=== PATIENT | female | born 1995 | race African-American/Black ===

== ENCOUNTER 2019-06-29 11:58 | Emergency (ER) | payer SELFPAY ==
[2019-06-29 12:13] VITALS: BP 132/68; PULSE 85; RESP 16; TEMP 36.5; O2SAT 99
--- NOTE | 2019-06-29 12:38 | ED.GENADULT ---
HPI - General Adult General Chief complaint: Abdominal Pain Stated complaint: Constipation/Abd pain/Bleeding Time Seen by Provider: 06/29/19 12:32 Source: patient and RN notes reviewed Mode of arrival: ambulatory Limitations: no limitations History of Present Illness HPI narrative: Patient presents today complaining of lower abdominal pain and constipation x3 days with bright red blood per rectum this morning x1. She had not had a bowel movement for 2 days. She did not take any giml-cjo-sulzusj medications at home. Reports her bowel movement this morning was soft and not large. She denies rectal pain with bowel movement. Denies any chronic issues with constipation. She has not had a period since April. Denies any current vaginal bleeding, hematuria, dysuria. MD complaint: Abdominal pain, bright red blood per rectum Related Data Home Medications Medication Instructions Recorded Confirmed No Home Medications 06/29/19 06/29/19 Allergies Allergy/AdvReac Type Severity Reaction Status Date / Time No Known Allergies Allergy Unknown Unverified 02/02/19 15:33 Review of Systems Review of Systems: Narrative: CONSTITUTIONAL: Denies body aches, fever, chills, or sweats. EYES: Denies visual changes, redness, or discharge. ENT: Denies rhinorrhea, congestion, sore throat, or otalgia. CARDIOVASCULAR: Denies chest pain, palpitations, or edema. RESPIRATORY: Denies cough or dyspnea. GASTROINTESTINAL: Denies nausea, vomiting, or diarrhea.+ Abdominal pain, bright red blood per rectum GENITOURINARY: Denies dysuria or hematuria. SKIN: Denies rash, itching, or wounds. MUSCULOSKELETAL: Denies back pain, joint pain, or myalgia. NEUROLOGIC: Denies headache, numbness, tingling, or weakness. PSYCH: Denies depression or anxiety. [facility] Past Medical History Medical History (Updated 06/29/19 @ 13:04 by Vy Berumen, [facility], ) HTN (hypertension) Social History Social History Gender identity (if verbalized by the patient): Female Comments At time of signature, I have reviewed and agree with nursing past medical, surgical, social and family history unless otherwise noted. Please see nursing chart for further information. There is no relevant family history pertinent to the presenting complaint Exam Narrative: Exam Narrative: GENERAL: Well-appearing, well-nourished, and in no acute distress. HEAD: Normocephalic, atraumatic. EYES: EOMI. No redness or drainage. Conjunctivae normal. ENT: Mucous membranes pink and moist. NECK: Normal AROM. CHEST: No respiratory distress. Clear to auscultation. HEART: Regular rate and rhythm. No murmur appreciated. Normal peripheral pulses. ABDOMEN: Soft, nondistended, normal active bowel sounds. Tenderness to the bilateral lower abdomen, Left greater than right, and suprapubic area. Rectal exam chaperoned by RN: No visualized anal fissures or external hemorrhoids. No internal hemorrhoids noted. Small amount of soft yellow stool on the glove. No bright red blood on glove. MUSCULOSKELETAL: No bony tenderness. EXTREMITIES: Normal range of motion. No edema. SKIN: Warm, dry, no rash. NEURO: No focal deficits. Alert and oriented x3. Gait steady. PSYCH: Normal affect. No signs of depression or anxiety. Course Vital Signs Vital signs: Vital Signs Temperature 97.7 F 06/29/19 12:13 Pulse Rate 85 06/29/19 12:13 Respiratory Rate 16 06/29/19 12:13 Blood Pressure 132/68 06/29/19 12:13 Pulse Oximetry 99 06/29/19 12:13 Temperature 97.7 F 06/29/19 12:13 Pulse Rate 85 06/29/19 12:13 Respiratory Rate 16 06/29/19 12:13 Blood Pressure 132/68 06/29/19 12:13 Pulse Oximetry 99 06/29/19 12:13 Reviewed. Pt has been instructed to follow up with her PCP regarding her elevated blood pressure today. Transfer Transfered to: [facility] Transfer rationale: Abdominal pain, Hemoccult positive Deni Accepting physician: Deni Medical Decision Making Differential Diag
--- NOTE | 2019-06-29 12:53 | PC.NURSE ---
Hemocult positive for blood. 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
== END 2019-06-29 13:02 | disposition short-term general hospital (02) ==
PROVIDERS: Emergency Provider Nurse Practitioner
DX: R10.31 Right lower quadrant pain (principal); R10.32 Left lower quadrant pain; R19.5 Other fecal abnormalities; I10 Essential (primary) hypertension
CPT/HCPCS: 81025; 99213; G0463

== ENCOUNTER 2019-06-29 13:21 | Emergency (ER) | payer SELFPAY ==
[2019-06-29 13:27] VITALS: BP 136/73; PULSE 70; RESP 18; TEMP 36.4; O2SAT 100
[2019-06-29 13:50] VITALS: BP 140/77; PULSE 74; RESP 15; O2SAT 100
[2019-06-29 14:01] LABS: Basophils Percent Auto 0.5 % (0.2-1.2); Eosinophils Absolute Auto 0.1 K/mm3 (0-0.3); Eosinophils Percent Auto 1.1 % (0-4.4); Hematocrit 41.7 % (37.0-47.0); Hemoglobin 13.1 g/dL (12.0-15.0); Immature Granulocyte Absolute 0.01 K/mm3 (0.00-0.031); Immature Granulocyte Percent A 0.2 % (0-0.5); Lymphocytes Absolute Auto 2.24 K/mm3 (0.9-3.2); Lymphocytes Percent Auto 34.9 % (18.3-44.2); Mean Corpuscular HGB Conc 31.4 g/dl (32-36); Mean Corpuscular Hemoglobin 26.7 pg (26-34); Mean Corpuscular Volume 85.1 fl (80-100); Mean Platelet Volume 9.5 fl (7.4-10.4); Monocytes Absolute Auto 0.5 K/mm3 (0.1-0.6); Neutrophils Absolute Auto 3.6 K/mm3 (1.3-6.7); Neutrophils Percent Auto 56.3 % (45.5-73.1); Platelet Count Result 360 k/mm3 (150-375); Red Cell Distribution Width 12.9 % (11.5-14.5); White Blood Count 6.4 K/mm3 (4.5-10.0)
[2019-06-29 14:06] LABS: Add Urine Microscopic? YES; Appearance Urine Cloudy (Clear); Bacteria Urine Trace /hpf; Bilirubin Urine Negative (Negative); Blood Urine 2+ (Negative); Color Urine Yellow (Yellow); Glucose Urine UA Negative (Negative); Ketones Urine Negative (Negative); Leukocyte Esterase Ur Trace LEU/UL (Negative); Mucus Urine Rare /lpf; Nitrate Urine Negative (Negative); Protein Urine 1+ mg/dL (Negative); Specific Grav Ur 1.024 (1.001-1.035); Squamous Epithelial Cell Urine Few /hpf (Few)
[2019-06-29] MEDS: SODIUM CHLORIDE 0.9% IV 1,000 ML 999 ML IV CONT (14:09)
[2019-06-29] MEDS: ONDANSETRON INJ 4 MG/2 ML VIAL IV PUSH (14:10)
[2019-06-29] MEDS: FAMOTIDINE 20 MG/2 ML VIAL IV PUSH (14:10)
[2019-06-29 14:13] LABS: Alanine Aminotransferase 44 U/L (4-35); Albumin Level 3.8 g/dL (3.5-5.1); Alkaline Phosphatase 54 U/L (38-126); Aspartate Amino Transferase 34 U/L (14-36); Bilirubin,Total 0.3 mg/dL (0.2-1.3); Blood Urea Nitrogen 13 mg/dL (7-17); Calcium 8.9 mg/dL (8.4-10.2); Carbon Dioxide 25 mmol/L (22-30); Chloride 104 mmol/L (98-107); Estimated CRCL calculation 127 ml/min; Estimated Glomerular Filt Rate > 60; Glucose 89 mg/dL (65-105); Lipase 49 U/L (23-300); Potassium 3.8 mmol/L (3.4-5.0); Sodium 139 mmol/L (137-145)
[2019-06-29 14:36] VITALS: BP 121/70; PULSE 59
[2019-06-29 14:37] VITALS: BP 118/73; PULSE 64
[2019-06-29 14:38] VITALS: BP 129/74; PULSE 77
--- NOTE | 2019-06-29 15:25 | ED.ABDPAIN ---
HPI - Abdominal Pain General Chief Complaint: Abdominal Pain Stated Complaint: abdominal pain, from express care Time Seen by Provider: 06/29/19 13:38 Source: patient Mode of arrival: ambulatory Limitations: no limitations History of Present Illness HPI narrative: Patient is a 24-year-old female who presents from urgent care for evaluation noting that she had some blood in her stool patient notes some mild discomfort in the suprapubic region patient denies similar occurrence in the past or any fever chills nausea vomiting on arrival is resting comfortably in the room in no distress has not taken anything for her symptoms denies radiation of pain Related Data Allergies Allergy/AdvReac Type Severity Reaction Status Date / Time No Known Allergies Allergy Unknown Unverified 02/02/19 15:33 Review of Systems Review of Systems: All systems reviewed & are unremarkable except as noted in HPI and below PMFSH Past Medical History Medical History HTN (hypertension) Social History Social History Gender identity (if verbalized by the patient): Female Exam Narrative: Exam Narrative: GENERAL: Well-appearing, well-nourished, and in no acute distress. HEAD: Normocephalic, atraumatic. EYES: PERRLA and EOMI. ENT: Nares clear, no rhinorrhea or epistaxis. Mucous membranes moist. Oropharynx without tonsillar hypertrophy exudate or other lesions. CHEST: Clear to auscultation. No respiratory distress. No wheezes rales or rhonchi HEART: Regular rate and rhythm. No murmur heard. Normal peripheral pulses. ABDOMEN: Soft, suprapubic tenderness to palpation, nondistended EXTREMITIES: Normal range of motion. No edema. SKIN: Warm, dry, no rash. NEURO: No focal deficits. Alert and oriented x3. Cranial nerves II through XII grossly intact PSYCH: Normal mood and affect. Course Course Emergency Course: Patient in the room in no distress aware of case findings treatment plan and diagnosis agreeing to follow-up as directed Vital Signs Vital signs: Vital Signs Temperature 97.6 F 06/29/19 13:27 Pulse Rate 70 06/29/19 13:27 Respiratory Rate 18 06/29/19 13:27 Blood Pressure 136/73 06/29/19 13:27 Pulse Oximetry 100 06/29/19 13:27 Temperature 97.6 F 06/29/19 13:27 Pulse Rate 77 06/29/19 14:38 Respiratory Rate 15 06/29/19 13:50 Blood Pressure 129/74 06/29/19 14:38 Pulse Oximetry 100 06/29/19 13:50 MDM - Abdominal Pain MDM Narrative Medical decision making narrative: Patient in the room hemodynamically stable in no distress aware of case findings treatment plan and diagnosis agreeing to follow-up as directed or to return if symptoms worsen or concerns patient is afebrile nontoxic-appearing hydrated in the emergency department given medications provided with reasons to return and will be referred to GI for further evaluation Lab Data Result diagrams: 06/29/19 13:53 06/29/19 13:53 Labs: Lab Results 06/29/19 06/29/19 06/29/19 Range/Units 13:53 13:53 13:53 WBC 6.4 (4.5-10.0) K/mm3 RBC 4.90 (4.2-5.4) M/mm3 Hgb 13.1 (12.0-15.0) g/dL Hct 41.7 (37.0-47.0) % MCV 85.1 (80-100) fl MCH 26.7 (26-34) pg MCHC 31.4 L (32-36) g/dl RDW 12.9 (11.5-14.5) % Plt Count 360 (150-375) k/mm3 MPV 9.5 (7.4-10.4) fl Immature Gran % (Auto) 0.2 (0-0.5) % Neut % (Auto) 56.3 (45.5-73.1) % Lymph % (Auto) 34.9 (18.3-44.2) % [place] % (Auto) 7.0 (2.6-8.5) % Eos % (Auto) 1.1 (0-4.4) % Baso % (Auto) 0.5 (0.2-1.2) % Lymph # (Auto) 2.24 (0.9-3.2) K/mm3 [place] # (Auto) 0.5 (0.1-0.6) K/mm3 Eos # (Auto) 0.1 (0-0.3) K/mm3 Baso # (Auto) 0.0 (0.0-0.1) K/mm3 Abs Immat Gran (auto) 0.01 (0.00-0.031) K/mm3 Absolute Neuts (auto) 3.6 (1.3-6.7) K/mm3 Absolute Nucleated RBC 0.0 (0.0-0.012) K/mm3 Nucleated
[2019-06-29 16:05] VITALS: BP 117/72; PULSE 78; RESP 16; O2SAT 100
== END 2019-06-29 16:05 | disposition home or self-care (01) ==
PROVIDERS: Emergency Medicine Emergency Medical Services; Emergency Provider Emergency Medicine
DX: R10.9 Unspecified abdominal pain (principal); I10 Essential (primary) hypertension
CPT/HCPCS: 36415; 80053; 81001; 81025; 83690; 85025; 96361; 96374; 96375; 99284; J0131; J2405; J7030

== ENCOUNTER 2019-11-07 15:10 | Emergency (ER) | payer SELFPAY ==
[2019-11-07 15:23] VITALS: BP 124/71; PULSE 65; RESP 16; TEMP 37.2; O2SAT 99
--- NOTE | 2019-11-07 15:33 | ED.LOWEXIN ---
HPI - Extremity Injury (Lower) General Chief Complaint: Extremity Injury, Lower Stated Complaint: swollen foot Time Seen by Provider: 11/07/19 15:26 Source: patient and RN notes reviewed Mode of arrival: ambulatory Limitations: no limitations History of Present Illness HPI Narrative: Patient presents today complaining of a 5-day history of left foot and ankle swelling, redness, and pain. Symptoms have been worsening since onset. Patient denies any injury, fall, twisting, or wounds. Denies numbness. Reports some tingling in the dorsum of the foot. Currently rates her pain 6/10, which increases with weightbearing. She has tried no interventions prior to arrival. No history of gout, cellulitis, diabetes. MD complaint: other (Left foot pain) Related Data Home Medications Medication Instructions Recorded Confirmed ibuprofen 11/07/19 Allergies Allergy/AdvReac Type Severity Reaction Status Date / Time No Known Allergies Allergy Verified 11/07/19 15:26 Review of Systems Review of Systems: Narrative: CONSTITUTIONAL: Denies body aches, fever, chills, or sweats. EYES: Denies visual changes, redness, or discharge. ENT: Denies rhinorrhea, congestion, sore throat, or otalgia. CARDIOVASCULAR: Denies chest pain, palpitations, or edema. RESPIRATORY: Denies cough or dyspnea. GASTROINTESTINAL: Denies abdominal pain, nausea, vomiting, or diarrhea. GENITOURINARY: Denies dysuria or hematuria. SKIN: Denies rash, itching, or wounds. MUSCULOSKELETAL: Denies back pain, or myalgia.+ Left foot and ankle pain and swelling NEUROLOGIC: Denies headache, numbness, or weakness.+ Tingling to the left foot PSYCH: Denies depression or anxiety. PMFSH Comments At time of signature, I have reviewed and agree with nursing past medical, surgical, social and family history unless otherwise noted. Please see nursing chart for further information. There is no relevant family history pertinent to the presenting complaint Exam Narrative: Exam Narrative: GENERAL: Well-appearing, well-nourished, and in no acute distress. HEAD: Normocephalic, atraumatic. EYES: EOMI. No redness or drainage. Conjunctivae normal. ENT: Mucous membranes pink and moist. NECK: Normal AROM. CHEST: No respiratory distress. EXTREMITIES: Mild edema of about the left ankle and proximal foot with mild erythema. Tenderness to the anterior ankle and proximal dorsal surface of the foot, as well as the medial ankle. Distal sensation intact. Capillary refill normal. Pedal pulse normal. Full AROM of the toes without pain. Active range of motion of the ankle elicits some pain. SKIN: Warm, dry, no rash. Capillary refill normal. Normal skin turgor. NEURO: No focal deficits. Alert and oriented x3. Gait steady. PSYCH: Normal affect. No signs of depression or anxiety. Course Vital Signs Vital signs: Vital Signs Temperature 99.0 F 11/07/19 15:23 Pulse Rate 65 11/07/19 15:23 Respiratory Rate 16 11/07/19 15:23 Blood Pressure 124/71 11/07/19 15:23 Pulse Oximetry 99 11/07/19 15:23 Temperature 99.0 F 11/07/19 15:23 Pulse Rate 65 11/07/19 15:23 Respiratory Rate 16 11/07/19 15:23 Blood Pressure 124/71 11/07/19 15:23 Pulse Oximetry 99 11/07/19 15:23 Reviewed. Pt has been instructed to follow up with her PCP regarding her elevated blood pressure today. MDM - Extremity Injury (Lower) Differential Diagnosis Differential diagnosis: Likely ankle sprain and strain and other (Gout, cellulitis) Critical Care Time Critical Care Time Critical Care Time: No Discharge Plan Discharge Clinical Impression: Acute gout of left ankle Qualifiers: Gout etiology: unspecified cause Qualified Code(s): M10.9 - Gout, unspecified Patient Disposition: Home, Self-Care Condition: Stable Instructions: Low Purine Diet (ED), Gout (ED) Additional Instructions: Your symptoms are likely due to gout. Please take the Medrol and colchicine as directed. Take
== END 2019-11-07 15:45 | disposition home or self-care (01) ==
PROVIDERS: Emergency Provider Nurse Practitioner
DX: M10.9 Gout, unspecified (principal)
CPT/HCPCS: 99203; G0463

== ENCOUNTER 2019-11-07 17:56 | Emergency (ER) | payer SELFPAY ==
--- NOTE | ~2019-11-07 | XR_ITS ---
XR foot LT min 3V DATE: 11/07/2019 18:35 INDICATION: Left ankle pain, radiating into left foot TECHNIQUE: 4 views of the left foot COMPARISON: None FINDINGS: No fracture, dislocation, periosteal reaction or bone destruction. IMPRESSION: Negative Reviewed, dictated and finalized at location A. IMPRESSION: Negative
--- NOTE | ~2019-11-07 | XR_ITS ---
XR ankle LT min 3V DATE: 11/07/2019 18:35 INDICATION: Left ankle pain and swelling; no injury. TECHNIQUE: 4 views COMPARISON: None FINDINGS: There is generalized soft tissue swelling. No fracture or dislocation, periosteal reaction or bone destruction. Ankle mortise is intact. IMPRESSION: Nonspecific soft tissue swelling Reviewed, dictated and finalized at location A.
[2019-11-07 17:58] VITALS: BP 158/88; PULSE 77; RESP 18; TEMP 36.8; O2SAT 98
--- NOTE | 2019-11-07 18:02 | ED.GENADULT ---
HPI - General Adult General Chief complaint: Extremity Injury, Lower Stated complaint: left foot swelling x 5 days Time Seen by Provider: 11/07/19 18:02 Source: patient Mode of arrival: ambulatory Limitations: no limitations History of Present Illness HPI narrative: 24-year-old female patient presents to the [facility] with complaints of left foot swelling for the past 5 days. Patient denies any specific injury that she can remember but states that she has been on her feet a lot working and [place] lives [place] [address] [place] and she has been doing a lot of running around recently. Patient states she last took some Advil yesterday denies seeing anything for pain today. Patient states she did notice some swelling to the left foot and ankle. Denies any numbness or tingling to the toes. Patient states she is able to walk on it with a steady gait but does have increase in pain. Related Data Home Medications Medication Instructions Recorded Confirmed No Home Medications 11/07/19 11/07/19 Allergies Allergy/AdvReac Type Severity Reaction Status Date / Time No Known Allergies Allergy Unknown Verified 11/07/19 18:11 Review of Systems Review of Systems: Narrative: CONSTITUTIONAL: Denies fever, chills, or sweats. EYES: Denies visual changes, redness, or discharge. ENT: Denies rhinorrhea, congestion, sore throat, or otalgia. CARDIOVASCULAR: Denies chest pain, palpitations, or edema. RESPIRATORY: Denies cough or dyspnea. GASTROINTESTINAL: Denies abdominal pain, nausea, vomiting, or diarrhea. GENITOURINARY: Denies dysuria or hematuria. SKIN: Denies rash or itching. MUSCULOSKELETAL: Denies back pain, joint pain, or myalgia. Positive left foot and ankle pain x5 days NEUROLOGIC: Denies headache, numbness, or weakness. PSYCHIATRIC: Denies anxiety or depression. [facility] Past Medical History Medical History HTN (hypertension) Family History Family History Grandparent Hypertension Social History Social History Smoking status: Former smoker Alcohol intake: current Gender identity (if verbalized by the patient): Female Comments At the time of my signature I agree with nursing past medical history, surgical, social, and family history. There is no relevant family history pertinent to the presenting complaint. Exam Narrative: Exam Narrative: GENERAL: Well-appearing, well-nourished, and in no acute distress. HEAD: Normocephalic, atraumatic. EYES: PERRLA and EOMI. ENT: Nares clear, no rhinorrhea or epistaxis. Mucous membranes moist. NECK: Supple. No lymphadenopathy CHEST: Clear to auscultation. No respiratory distress. HEART: Regular rate and rhythm. No murmur heard. Normal peripheral pulses. ABDOMEN: Soft, nontender, nondistended, normal active bowel sounds. EXTREMITIES: Patient able to bear weight and ambulate with increased pain to the left foot. No surface trauma, ecchymosis, erythema, lesions, ulcers or break in skin integrity. Patient does have slight swelling noted over the medial malleolus on the left foot. The L foot is without obvious asymmetry or deformity when compared to the R foot. No bony step-off, nontender to palpation over the toes, tenderness over the left midfoot, no tenderness noted to the hindfoot or sole. Normal plantar/dorsiflexion, inversion/eversion. Distal motor and neurovascular status are intact SKIN: Warm, dry, no rash. NEURO: No focal deficits. Alert and oriented x3. Course Reevaluation(s) Reevaluation #1: Reevaluated patient. Discussed with her that her x-ray is negative for any acute fractures of the foot. Discussed with her this is most likely a mild sprain to the foot that is causing the pain and swelling. Discussed with patient we will wrap her with an Robert wrap today she can continue taking Tylenol and ibuprofen as needed for the p
[2019-11-07] MEDS: KETOROLAC (*BKC) 60 MG/2 ML VIAL IM (18:41)
[2019-11-07 19:15] VITALS: BP 133/80; PULSE 66; RESP 16; O2SAT 98
== END 2019-11-07 19:17 | disposition home or self-care (01) ==
PROVIDERS: Emergency Provider Nurse Practitioner Family
DX: S93.602A Unspecified sprain of left foot, initial encounter (principal); X50.0XXA Overexertion from strenuous movement or load, initial encounter
CPT/HCPCS: 73610; 73630; 96372; 99283; J1885

== ENCOUNTER 2020-05-21 10:50 | Emergency (ER) | payer SELFPAY ==
--- NOTE | ~2020-05-21 | US_ITS ---
EXAMINATION: US pelvic complete w TV DATE: 05/21/2020 12:53 INDICATION: Prolonged bleeding and pelvic pain Comparison:No prior studies for comparison. TECHNIQUE: Multiple transabdominal and endovaginal sonographic images of the pelvis performed. FINDINGS: The uterus measures 6.8 x 3.6 x 4.2 cm. The endometrial complex measures 9 mm. The right ovary measures 2.8 x 2.1 x 1.8 cm and the left ovary measures 3.3 x 1.7 x 1.8 cm. There ar e small follicles in each ovary. There is no free fluid in the pelvis. There are no abnormal masses seen on either side. IMPRESSION: 1. Normal pelvic ultrasound. Reviewed, dictated and finalized at location A. [employer]IST
[2020-05-21 10:49] VITALS: BP 145/75; PULSE 68; RESP 20; TEMP 36.2; O2SAT 100
[2020-05-21 11:10] VITALS: BP 137/81; PULSE 67
[2020-05-21 11:11] VITALS: BP 120/78; BP 125/75; PULSE 64; PULSE 75
[2020-05-21 11:18] LABS: Basophils Percent Auto 0.5 % (0.2-1.2); Eosinophils Absolute Auto 0.1 K/mm3 (0-0.3); Eosinophils Percent Auto 1.2 % (0-4.4); Hemoglobin 12.1 g/dL (12.0-15.0); Immature Granulocyte Absolute 0.01 K/mm3 (0.00-0.031); Immature Granulocyte Percent A 0.2 % (0-0.5); Lymphocytes Absolute Auto 2.04 K/mm3 (0.9-3.2); Lymphocytes Percent Auto 35.4 % (18.3-44.2); Mean Corpuscular HGB Conc 32.7 g/dl (32-36); Mean Corpuscular Hemoglobin 27.6 pg (26-34); Mean Corpuscular Volume 84.5 fl (80-100); Mean Platelet Volume 9.3 fl (7.4-10.4); Monocytes Absolute Auto 0.5 K/mm3 (0.1-0.6); Monocytes Percent Auto 8.7 % (2.6-8.5); Neutrophils Absolute Auto 3.1 K/mm3 (1.3-6.7); Platelet Count Result 344 k/mm3 (150-375); Red Blood Count 4.38 M/mm3 (4.2-5.4); Red Cell Distribution Width 12.5 % (11.5-14.5); White Blood Count 5.8 K/mm3 (4.5-10.0)
--- NOTE | 2020-05-21 11:21 | ED.ABDPAIN ---
HPI - Abdominal Pain General Chief Complaint: Abdominal Pain Stated Complaint: mens cramping Time Seen by Provider: 05/21/20 10:52 Source: patient Mode of arrival: EMS Limitations: no limitations History of Present Illness HPI narrative: This is a 25 year old female that presents to the ER for abnormal uterine bleeding. Reports she does have history of irregular periods. She is not currently on control. This cycle has been ongoing for the last 2 weeks. Reports heavy bleeding. Reports pelvic cramping. Reports no concern for STDs. Denies fever or dysuria. Related Data Allergies Allergy/AdvReac Type Severity Reaction Status Date / Time No Known Allergies Allergy Unknown Verified 05/21/20 10:51 Review of Systems Review of Systems: Narrative: CONSTITUTIONAL: Denies fever GASTROINTESTINAL: Reports pelvic pain. Denies nausea, vomiting GENITOURINARY: Denies dysuria or hematuria. SKIN: Denies rash All systems reviewed & are unremarkable except as noted in HPI and below PMFSH Past Medical History Medical History (Updated 05/21/20 @ 14:42 by Rebeca Peacock PA-C) HTN (hypertension) Family History Family History Grandparent Hypertension Social History Social History Smoking status: Former smoker Alcohol intake: current Gender identity (if verbalized by the patient): Female Exam Narrative: Exam Narrative: GENERAL: Well-appearing, well-nourished, and in no acute distress. HEAD: Normocephalic, atraumatic. EYES: EOMI. CHEST: Clear to auscultation. No respiratory distress. No wheezes rales or rhonchi HEART: Regular rate and rhythm. No murmur heard. Normal peripheral pulses. ABDOMEN: Soft, nontender, nondistended, normal active bowel sounds. No CVA tenderness EXTREMITIES: Normal range of motion. No edema. SKIN: Warm, dry, no rash. NEURO: No focal deficits. Alert and oriented x3. PSYCH: Normal mood and affect PELVIC: Small to moderate amount of dark red blood in the vaginal vault. Normal appearing cervix, blood slowly oozing from the cervix Course Vital Signs Vital signs: Vital Signs Temperature 97.1 F L 05/21/20 10:49 Pulse Rate 68 05/21/20 10:49 Respiratory Rate 20 05/21/20 10:49 Blood Pressure 145/75 H 05/21/20 10:49 Pulse Oximetry 100 05/21/20 10:49 Temperature 97.1 F L 05/21/20 10:49 Pulse Rate 75 05/21/20 11:11 Respiratory Rate 20 05/21/20 10:49 Blood Pressure 125/75 05/21/20 11:11 Pulse Oximetry 100 05/21/20 10:49 MDM - Abdominal Pain MDM Narrative Medical decision making narrative: Patient presents the emergency department for abnormal uterine bleeding. Has had prolonged cycle lasting 2 weeks. She is afebrile and nontoxic-appearing. Borderline orthostatic on arrival, this improved with IV fluid administration. Hemoglobin is normal at 12.1. Metabolic panel without concerning findings. UA with red blood cells and white blood cells, also with some squamous epithelial cells. No leuk esterase or nitrates. Patient is not having any urinary symptoms. This will go for culture. I did have pelvic exam and send cultures. Trichomonas was negative. Chlamydia, gonorrhea, and genital culture were sent. Patient would like to be presumptively treated for chlamydia and gonorrhea. Pelvic ultrasound was normal. Spoke with Dr. Mcclain about patient work-up. Patient will be started on Provera for the next 10 days and is to follow-up in clinic. Patient is stable and felt appropriate for further outpatient evaluation. She was given warnings to return to the ER Lab Data Attestation: I reviewed the patient's lab results. Result diagrams: 05/21/20 11:06 05/21/20 11:06 Labs: Lab Results 05/21/20 05/21/20 05/21/20 Range/Units 11:06 11:06 11:06 WBC 5.8 (4.5-10.0) K/mm3 RBC 4.38 (4.2-5.4) M/mm3 Hgb 12.1 (12.0-15.0) g/dL Hct 37
[2020-05-21 11:23] LABS: Add Urine Microscopic? YES; Appearance Urine Cloudy (Clear); Bilirubin Urine Negative (Negative); Blood Urine 3+ (Negative); Color Urine Red (Yellow); Glucose Urine UA Negative (Negative); Ketones Urine Negative (Negative); Leukocyte Esterase Ur Negative LEU/UL (Negative); Mucus Urine Rare /lpf; Nitrate Urine Negative (Negative); Protein Urine 2+ mg/dL (Negative); RBC Urine >75 /hpf (0-2); Specific Grav Ur 1.016 (1.001-1.035); Squamous Epithelial Cell Urine Occasional /hpf (Few); Urobilinogen Urine Negative mg/dL (<2.0); WBC Urine 16-20 /hpf
[2020-05-21 11:28] LABS: Partial Thromboplastin Time 28.7 SECONDS (22.3-36.8); Prothrombin Time 13.3 Seconds (11.1-14.7)
[2020-05-21 11:30] LABS: Anion Gap 1 mmol/L (8-16); Blood Urea Nitrogen 10 mg/dL (7-17); Calcium 9.2 mg/dL (8.4-10.2); Carbon Dioxide 32 mmol/L (22-30); Chloride 105 mmol/L (98-107); Estimated CRCL calculation 120 ml/min; Estimated Glomerular Filt Rate > 60; Glucose 95 mg/dL (65-105); Potassium 3.8 mmol/L (3.4-5.0); Sodium 138 mmol/L (137-145)
[2020-05-21] MEDS: SODIUM CHLORIDE 0.9% IV 1,000 ML 999 ML IV CONT (11:52)
[2020-05-21] MEDS: cefTRIAXone 250 MG VIAL 500 MG IM (14:52)
[2020-05-21] MEDS: DOXYCYCLINE HYCLATE 100 MG TABLET PO (14:52)
[2020-05-21] MEDS: LIDOCAINE HCL 1% LOCAL INJ 20 ML VIAL (14:53)
== END 2020-05-21 15:04 | disposition home or self-care (01) ==
PROVIDERS: Physician Assistant; Emergency Provider Emergency Medicine
DX: N93.9 Abnormal uterine and vaginal bleeding, unspecified (principal); I10 Essential (primary) hypertension; Z87.891 Personal history of nicotine dependence
CPT/HCPCS: 36415; 76830; 76856; 80048; 81001; 81025; 85025; 85610; 85730; 87070; 87077; 87086; 87088; 87147; 87491; 87591; 87808; 96361; 96365; 96372; 99284; A9270; J0131; J0696; J7030

== ENCOUNTER 2020-12-03 16:09 | Emergency (ER) | payer BC, SELFPAY ==
[2020-12-03 16:19] VITALS: BP 141/86; PULSE 71; RESP 19; TEMP 36.6; O2SAT 100
--- NOTE | 2020-12-03 16:32 | ECG_ITS ---
Measurements Intervals [place] Rate: 56 P: -4 CA: 167 QRS: 24 QRSD: 105 T: 15 QT: 392 QTc: 380 Interpretive Statements SINUS BRADYCARDIA INCOMPLETE RIGHT BUNDLE BRANCH BLOCK ST ELEVATION IN DIFFUSE LEADS- CONSIDER PERICARDITIS, ACUTE INJURY OR REPOLARIZATION ABNORMALITY ABNORMAL ECG Electronically Signed On 12-03-2020 21:32:45 CDT by Alfredo OLIVO
--- NOTE | 2020-12-03 16:47 | ED.GENADULT ---
HPI - General Adult General Chief complaint: Neuro Symptoms/Deficit Stated complaint: numbness right side of body Source: patient Mode of arrival: ambulatory Limitations: no limitations History of Present Illness HPI narrative: 25 y/o AA female. PMHx: none reported, negative. Presents to [facility] today with acute complaints of mid-sternal chest pain, RT occipital MACHADO, RT side facial numbness, and RT side lower extremity weakness for the past 2-3 weeks. No closed head injury, seizure activity, LOC, or falls/head trauma. She denies fever, neck pain, palpitations, dyspnea, edema. Client reports her chest pain is intermittent, and sharp radiating to RT shoulder and down entire RUE. She reports RT side weakness to be worsen when MACHADO appears. No Hx of DM or Migraine Dx has been relayed. She is without additional acute c/o illness upon exam. Related Data Home Medications Medication Instructions Recorded Confirmed No Home Medications 12/03/20 12/03/20 Allergies Allergy/AdvReac Type Severity Reaction Status Date / Time No Known Allergies Allergy Verified 12/03/20 16:43 Review of Systems Review of Systems: CONSTITUTIONAL: Denies fever, chills, sweats. EYES: Denies visual changes, redness, discharge. ENT: Denies rhinorrhea, congestion, sore throat, otalgia. CARDIOVASCULAR: Positive chest pain. No palpitations, edema. RESPIRATORY: Denies dyspnea, wheezing, cough GASTROINTESTINAL: Denies abdominal pain, nausea, vomiting, diarrhea. GENITOURINARY: Denies dysuria, hematuria, abnormal discharge SKIN: Denies rash or itching. MUSCULOSKELETAL: Denies acute back pain, joint pain, or myalgia. NEUROLOGIC: MACHADO, RT side numbness & weakness. PSYCHIATRIC: Denies anxiety or depression. All systems reviewed & are unremarkable except as noted in HPI and below PMFSH Past Medical History Medical History HTN (hypertension) Family History Family History Grandparent Hypertension Social History Social History Smoking status: Former smoker Alcohol intake: current Gender identity (if verbalized by the patient): Female Exam Narrative: GENERAL: well-developed. CARDIOVASCULAR: Regular rate and rhythm without murmurs, gallops, or rubs. RESPIRATORY: Clear to auscultation. Breath sounds equal bilaterally. No wheezes, rales, or rhonchi. GASTROINTESTINAL: Abdomen soft, non-tender, nondistended. Bowel sounds are active. No guarding. NEURO: Alert, active, and answers questions appropriately. Moves all extremities equally. [employer] strong and equal. No facial droop. EOM. GCS 15. No obvious focal deficits. +++NOTE: Portions of Physical exam have been excluded secondary to need for acute care and tertiary transfer+++ Refer to MDM & Transfer records. Course Course Emergency Course: -FSB -ECG: NRS rate 90 bpm. No ischemia, no ectopy. Transfer Transfered to: [facility] ([facility] ) Transportation: Other (Personal Vehicle w/Family. ) Transfer rationale: -Chest pain, MACHADO, RT side neurological complaints/weakness. -Requires higher level of medical resources & evaluation. Tertiary Care. Accepting physician: MD Blackburn @ [facility]. Medical Decision Making [facility] Narrative Medical decision making narrative: -25 y/o AA female. Reports no PMHx. -C/O mid-sternal Chest pain, RT side MACHADO & neurological changes. -No falls, injury, LOC. -No history of known Sz Dx, Migraines, Diabetic, or cardiac issues relayed. -FBGS upon arrival 90. -ECG in clinic NSR rate 60 bpm. I do not appreciate ischemia or ectopy. No old for comparison. -Non-tachycardic, Normotensive and hemodynamically stable. -DDX: ACS, Neurological Lesions, mass, CVA, TIA, PE, AAA, & Other. -This patient has been re-directed to [facility] for higher level of resources and medical evaluation at this jessica
[2020-12-03 17:13] LABS: Glucose Point of Care 92 mg/dl (65-105)
== END 2020-12-03 16:55 | disposition short-term general hospital (02) ==
PROVIDERS: Emergency Provider Nurse Practitioner Adult Health
DX: R53.1 Weakness (principal); R07.9 Chest pain, unspecified; I10 Essential (primary) hypertension; Z87.891 Personal history of nicotine dependence
CPT/HCPCS: 82948; 93005; 99213; G0463

== ENCOUNTER 2020-12-03 17:19 | Emergency (ER) | payer BC, SELFPAY ==
--- NOTE | ~2020-12-03 | XR_ITS ---
EXAMINATION: XR chest 2V DATE: 12/03/2020 18:40 INDICATION: Midsternal chest pain TECHNIQUE: PA and lateral views of the chest are obtained. COMPARISON: 03/12/2018 FINDINGS: The lungs are free of acute opacities. There is no pleural effusion or pneumothorax. The ca rdiomediastinal silhouette is normal. There is S-shaped curvature of the spine. IMPRESSION: 1. No acute cardiopulmonary abnormality. Reviewed, dictated and finalized at location A.
[2020-12-03 17:47] VITALS: BP 135/90; PULSE 65; RESP 18; TEMP 36.6; O2SAT 100
--- NOTE | 2020-12-03 17:56 | ECG_ITS ---
Measurements Intervals [place] Rate: 56 P: -4 CA: 167 QRS: 24 QRSD: 105 T: 15 QT: 392 QTc: 380 Interpretive Statements SINUS BRADYCARDIA INCOMPLETE RIGHT BUNDLE BRANCH BLOCK ST ELEVATION IN DIFFUSE LEADS- CONSIDER PERICARDITIS, ACUTE INJURY OR REPOLARIZATION ABNORMALITY ABNORMAL ECG Electronically Signed On 12-03-2020 21:32:45 CDT by Alfredo OLIVO
[2020-12-03 19:22] LABS: Basophils Percent Auto 0.8 % (0.2-1.2); Eosinophils Absolute Auto 0.1 K/mm3 (0-0.3); Eosinophils Percent Auto 2.1 % (0-4.4); Hematocrit 39.2 % (37.0-47.0); Hemoglobin 12.2 g/dL (12.0-15.0); Immature Granulocyte Absolute 0.01 K/mm3 (0.00-0.031); Immature Granulocyte Percent A 0.2 % (0-0.5); Lymphocytes Absolute Auto 1.93 K/mm3 (0.9-3.2); Lymphocytes Percent Auto 37.5 % (18.3-44.2); Mean Corpuscular HGB Conc 31.1 g/dl (32-36); Mean Corpuscular Hemoglobin 25.7 pg (26-34); Mean Corpuscular Volume 82.5 fl (80-100); Mean Platelet Volume 9.1 fl (7.4-10.4); Monocytes Absolute Auto 0.3 K/mm3 (0.1-0.6); Monocytes Percent Auto 6.2 % (2.6-8.5); Neutrophils Absolute Auto 2.7 K/mm3 (1.3-6.7); Neutrophils Percent Auto 53.2 % (45.5-73.1); Platelet Count Result 354 k/mm3 (150-375); Red Blood Count 4.75 M/mm3 (4.2-5.4); Red Cell Distribution Width 13.9 % (11.5-14.5); White Blood Count 5.2 K/mm3 (4.5-10.0)
[2020-12-03 19:32] LABS: INR 0.9; Prothrombin Time 12.3 Seconds (11.1-14.7)
[2020-12-03 19:33] LABS: Partial Thromboplastin Time 26.4 SECONDS (22.3-36.8)
[2020-12-03 19:34] LABS: Anion Gap 8 mmol/L (8-16); Blood Urea Nitrogen 10 mg/dL (7-17); Calcium 9.3 mg/dL (8.4-10.2); Carbon Dioxide 25 mmol/L (22-30); Chloride 105 mmol/L (98-107); Estimated CRCL calculation 138 ml/min; Estimated Glomerular Filt Rate > 60; Glucose 86 mg/dL (65-110); Potassium 3.9 mmol/L (3.4-5.0); Sodium 138 mmol/L (137-145)
[2020-12-03 19:42] VITALS: BP 118/82; PULSE 68; RESP 18; O2SAT 100
[2020-12-03 19:46] LABS: Troponin I < 0.012 ng/mL (0.000-0.034)
[2020-12-03] MEDS: KETOROLAC 15 MG/ML VIAL (*BKC) IV PUSH (20:18)
[2020-12-03 20:32] LABS: Add Urine Microscopic? YES; Appearance Urine Clear (Clear); Bilirubin Urine Negative (Negative); Blood Urine Negative (Negative); Color Urine Yellow (Yellow); Glucose Urine UA Negative (Negative); Ketones Urine Negative (Negative); Leukocyte Esterase Ur Trace LEU/UL (Negative); Mucus Urine Heavy /lpf; Nitrate Urine Negative (Negative); Protein Urine Negative (Negative); RBC Urine 0-2 /hpf (0-2); Specific Grav Ur 1.028 (1.001-1.035); Squamous Epithelial Cell Urine Few /hpf (Few); Urobilinogen Urine Negative mg/dL (<2.0)
[2020-12-03 20:34] LABS: Alanine Aminotransferase 17 U/L (4-35); Alkaline Phosphatase 71 U/L (38-126); Aspartate Amino Transferase 19 U/L (14-36); Bilirubin,Total 0.3 mg/dL (0.2-1.3); Lipase 30 U/L (23-300)
--- NOTE | 2020-12-03 21:18 | ED.GENADULT ---
HPI - General Adult General Chief complaint: Unspecified Stated complaint: R sided weakness, cp Time Seen by Provider: 12/03/20 19:45 History of Present Illness HPI narrative: Patient 25-year-old female presents the emergency department with chief complaint of right upper extremity pain. The patient states for the last week or so she has been having a pain in her right upper extremity that radiates up into her neck and then down into her chest and right upper quadrant. The patient states that she has a tingling-like sensation in the forearm reports that it is worse whenever she does a lot of typing. The patient states that she has had no trauma denies shortness of breath patient reports she has had no prior intra-abdominal surgeries. The patient denies any history of thromboembolic disease denies history of connective tissue disorder or clotting disorder. Related Data Allergies Allergy/AdvReac Type Severity Reaction Status Date / Time No Known Allergies Allergy Verified 12/03/20 16:43 Review of Systems Review of Systems: A 10 system review of systems was completed on the patient and is negative except for what is stated in the HPI. Nursing and ancillary documentation was reviewed. [facility] Past Medical History Medical History (Updated 12/03/20 @ 21:26 by Reyes Abdi MD) HTN (hypertension) Family History Family History Grandparent Hypertension Social History Social History Smoking status: Former smoker Alcohol intake: current Gender identity (if verbalized by the patient): Female Exam Narrative: GENERAL: Well-appearing, well-nourished, and in no acute distress. HEAD: Normocephalic, atraumatic. EYES: PERRLA and EOMI. ENT: Nares clear, no rhinorrhea or epistaxis. Mucous membranes moist. NECK: Supple. CHEST: Clear to auscultation. No respiratory distress. HEART: Regular rate and rhythm. No murmur heard. Normal peripheral pulses. ABDOMEN: Soft, nontender, nondistended, normal active bowel sounds. EXTREMITIES: Normal range of motion. No edema. SKIN: Warm, dry, no rash. NEURO: No focal deficits. Alert and oriented x3. PSYCH: Normal mood and affect. Course Vital Signs Vital signs: Vital Signs Temperature 36.6 C 12/03/20 17:47 Pulse Rate 65 12/03/20 17:47 Respiratory Rate 18 12/03/20 17:47 Blood Pressure 135/90 12/03/20 17:47 Pulse Oximetry 100 12/03/20 17:47 Temperature 36.6 C 12/03/20 17:47 Pulse Rate 68 12/03/20 19:42 Respiratory Rate 18 12/03/20 19:42 Blood Pressure 118/82 12/03/20 19:42 Pulse Oximetry 100 12/03/20 19:42 Medical Decision Making Vital Signs Vital Signs: Vital Signs Temperature 36.6 C 12/03/20 17:47 Pulse Rate 65 12/03/20 17:47 Respiratory Rate 18 12/03/20 17:47 Blood Pressure 135/90 12/03/20 17:47 Pulse Oximetry 100 12/03/20 17:47 Temperature 36.6 C 12/03/20 17:47 Pulse Rate 68 12/03/20 19:42 Respiratory Rate 18 12/03/20 19:42 Blood Pressure 118/82 12/03/20 19:42 Pulse Oximetry 100 12/03/20 19:42 Lab Data Result diagrams: 12/03/20 19:16 12/03/20 19:16 Labs: Lab Results 12/03/20 12/03/20 12/03/20 Range/Units 19:15 19:16 19:16 WBC 5.2 (4.5-10.0) K/mm3 RBC 4.75 (4.2-5.4) M/mm3 Hgb 12.2 (12.0-15.0) g/dL Hct 39.2 (37.0-47.0) % MCV 82.5 (80-100) fl MCH 25.7 L (26-34) pg MCHC 31.1 L (32-36) g/dl RDW 13.9 (11.5-14.5) % Plt Count 354 (150-375) k/mm3 MPV 9.1 (7.4-10.4) fl Immature Gran % (Auto) 0.2 (0-0.5) % Neut % (Auto) 53.2 (45.5-73.1) % Lymph % (Auto) 37.5 (18.3-44.2) % [place] % (Auto) 6.2 (2.6-8.5) % Eos % (Auto) 2.1 (0-4.4) % Baso % (Auto) 0.8 (0.2-1.2) % Lymph # (Auto) 1.93 (0.9-3.2) K/mm3 [place] # (Auto) 0.3 (0.1-0.6) K/mm3 Eos # (Auto)
[2020-12-03 21:35] VITALS: BP 127/78; PULSE 66; RESP 20; TEMP 36.7; O2SAT 100
== END 2020-12-03 21:37 | disposition home or self-care (01) ==
PROVIDERS: Emergency Medicine; Emergency Provider Emergency Medicine
DX: M25.511 Pain in right shoulder (principal); R07.89 Other chest pain; I10 Essential (primary) hypertension; Z87.891 Personal history of nicotine dependence; I45.10 Unspecified right bundle-branch block; R00.1 Bradycardia, unspecified; R94.31 Abnormal electrocardiogram [ECG] [EKG]
CPT/HCPCS: 36415; 71046; 80048; 80076; 81001; 82948; 83690; 84484; 85025; 85610; 85730; 93005; 96374; 99284; J1885

== ENCOUNTER 2021-01-15 18:25 | Emergency (ER) | payer BC, SELFPAY ==
[2021-01-15 19:01] VITALS: BP 163/95; PULSE 79; RESP 18; TEMP 36.4; O2SAT 100
--- NOTE | 2021-01-15 21:18 | ED.GENADULT ---
HPI - General Adult General Chief complaint: Skin/Abscess/Foreign Body Stated complaint: belly button ring infected Time Seen by Provider: 01/15/21 21:12 History of Present Illness HPI narrative: Patient is a 25-year-old female who presents the emergency department with chief complaint of navel piercing stuck in tissue of abdominal wall. The patient states that 2 years ago she lost a piercing in her subcutaneous tissue and I did not bother to have it removed. The patient states that the skin has grown over the top insurance and reports there has been a post sticking out of her skin for about 2 years the patient states that the area has become reddened reports that it is become tender and reports that her birthday is coming up at the end of this month and states that she just wants this taken care of. Related Data Allergies Allergy/AdvReac Type Severity Reaction Status Date / Time No Known Allergies Allergy Verified 12/03/20 16:43 Review of Systems Review of Systems: A 10 system review of systems was completed on the patient and is negative except for what is stated in the HPI. Nursing and ancillary documentation was reviewed. ON LICENSE OF [facility] Past Medical History Medical History (Updated 01/15/21 @ 21:20 by Reyes Abdi MD) HTN (hypertension) Family History Family History Grandparent Hypertension Social History Social History Smoking status: Former smoker Alcohol intake: current Gender identity (if verbalized by the patient): Female Exam Narrative: GENERAL: Well-appearing, well-nourished, and in no acute distress. HEAD: Normocephalic, atraumatic. EYES: PERRLA and EOMI. ENT: Nares clear, no rhinorrhea or epistaxis. Mucous membranes moist. NECK: Supple. CHEST: Clear to auscultation. No respiratory distress. HEART: Regular rate and rhythm. No murmur heard. Normal peripheral pulses. ABDOMEN: Soft, nontender, nondistended, normal active bowel sounds. EXTREMITIES: Normal range of motion. No edema. SKIN: Warm, dry, no rash. There is a post from a piercing sticking out of the skin in the umbilicus area the primary piercing location is grown over. NEURO: No focal deficits. Alert and oriented x3. PSYCH: Normal mood and affect. Course Vital Signs Vital signs: Vital Signs Temperature 36.4 C L 01/15/21 19:01 Pulse Rate 79 01/15/21 19:01 Respiratory Rate 18 01/15/21 19:01 Blood Pressure 163/95 H 01/15/21 19:01 Pulse Oximetry 100 01/15/21 19:01 Temperature 36.4 C L 01/15/21 19:01 Pulse Rate 79 01/15/21 19:01 Respiratory Rate 18 01/15/21 19:01 Blood Pressure 163/95 H 01/15/21 19:01 Pulse Oximetry 100 01/15/21 19:01 Procedures Foreign Body Removal Foreign Body #1: Foreign Body Removal Date: 01/15/21 Foreign Body Removal Time: 21:45 Time Out Performed: yes Site: other (abdominal wall) Description of foreign body: other (barble piercing) Technique: other (incision with 11 blade) Confirmed by:: direct visualization Complications: none Post-procedure exam: awake, alert Neurovascular: normal distal pulse, normal capillary fill, distal light touch sensation intact, distal motor function normal, no signs of compartment syndrome, no change from pre-procedure and other Medical Decision Making Vital Signs Vital Signs: Vital Signs Temperature 36.4 C L 01/15/21 19:01 Pulse Rate 79 01/15/21 19:01 Respiratory Rate 18 01/15/21 19:01 Blood Pressure 163/95 H 01/15/21 19:01 Pulse Oximetry 100 01/15/21 19:01 Temperature 36.4 C L 01/15/21 19:01 Pulse Rate 79 01/15/21 19:01 Respiratory Rate 18 01/15/21 19:01 Blood Pressure 163/95 H 01/15/21 19:01 Pulse Oximetry 100 01/15/21 19:01 Discharge Plan Discharge Clinical Impression: Other foreign body or object entering
[2021-01-15 22:05] VITALS: BP 130/70; PULSE 78; RESP 18; O2SAT 100
== END 2021-01-15 22:06 | disposition home or self-care (01) ==
PROVIDERS: Emergency Provider Emergency Medicine
DX: S30.851A Superficial foreign body of abdominal wall, initial encounter (principal); I10 Essential (primary) hypertension; Z87.891 Personal history of nicotine dependence; W45.8XXA Other foreign body or object entering through skin, initial encounter
CPT/HCPCS: 10120; 99283

== ENCOUNTER 2021-03-05 17:47 | Emergency (ER) | payer BC, SELFPAY ==
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
[2021-03-05 17:56] VITALS: BP 146/115; PULSE 69; RESP 14; TEMP 36.4; O2SAT 100
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
--- NOTE | 2021-03-05 19:39 | PC.NURSE ---
Entered room to complete discharge instructions, pt was not in room. Attempted to call pt to inform her of prescription, no answer.
== END 2021-03-05 19:30 | disposition home or self-care (01) ==
PROVIDERS: Emergency Provider General Practice
DX: S60.221A Contusion of right hand, initial encounter (principal); I10 Essential (primary) hypertension; Z87.891 Personal history of nicotine dependence; Y04.0XXA Assault by unarmed brawl or fight, initial encounter
CPT/HCPCS: 73130; 99283

== ENCOUNTER 2022-07-30 09:35 | Emergency (ER) | payer OTHER, SELFPAY ==
[2022-07-30 09:50] VITALS: BP 141/89; PULSE 88; RESP 17; TEMP 36.7; O2SAT 100
[2022-07-30 11:33] VITALS: BP 142/94; PULSE 60; RESP 18; TEMP 36.9; O2SAT 100
--- NOTE | 2022-07-30 11:58 | ED.GENADULT ---
HPI - General Adult General Chief complaint: Ear Stated complaint: ST, left earache Time Seen by Provider: 07/30/22 11:19 History of Present Illness HPI narrative: 27-year-old female presents to the ER today for ongoing problems with the left sided throat pain and left earache. She says that she has had the symptoms for the past 2 months. She reports coming to the ER several times for this. She has been tested for COVID and strep and all that was negative previously. She says that she has not been treated with any antibiotics at this point. She has been taking ibuprofen as needed for pain. Related Data Allergies Allergy/AdvReac Type Severity Reaction Status Date / Time No Known Allergies Allergy Verified 07/30/22 11:29 Review of Systems Review of Systems: CONSTITUTIONAL: Denies fever, chills, or sweats. EYES: Denies visual changes, redness, or discharge. ENT:as per HPI CARDIOVASCULAR: Denies chest pain, palpitations, or edema. RESPIRATORY: Denies cough or dyspnea. GASTROINTESTINAL: Denies abdominal pain, nausea, vomiting, or diarrhea. GENITOURINARY: Denies dysuria or hematuria. SKIN: Denies rash or itching. MUSCULOSKELETAL: Denies back pain, joint pain, or myalgia. NEUROLOGIC: Denies headache, numbness, dizziness, or weakness. PSYCHIATRIC: Denies anxiety or depression. [facility] Past Medical History Medical History (Updated 07/30/22 @ 13:06 by Natalie Cohen APRN) HTN (hypertension) Family History Family History (System 07/10/21 @ 10:57 by Aracelis Moncada) Grandparent Hypertension Social History Social History (System 07/10/21 @ 10:57 by Aracelis Moncada) Smoking status: Former smoker Alcohol intake: current Gender identity (if verbalized by the patient): Female Course Vital Signs Vital signs: Vital Signs Temperature 36.7 C 07/30/22 09:50 Pulse Rate 88 07/30/22 09:50 Respiratory Rate 17 07/30/22 09:50 Blood Pressure 141/89 H 07/30/22 09:50 Pulse Oximetry 100 07/30/22 09:50 Oxygen Delivery Room Air 07/30/22 09:50 Temperature 36.9 C 07/30/22 11:33 Pulse Rate 60 07/30/22 11:33 Respiratory Rate 18 07/30/22 11:33 Blood Pressure 142/94 H 07/30/22 11:33 Pulse Oximetry 100 07/30/22 11:33 Oxygen Delivery Room Air 07/30/22 09:50 Medical Decision Making Vital Signs Vital Signs: Vital Signs Temperature 36.7 C 07/30/22 09:50 Pulse Rate 88 07/30/22 09:50 Respiratory Rate 17 07/30/22 09:50 Blood Pressure 141/89 H 07/30/22 09:50 Pulse Oximetry 100 07/30/22 09:50 Oxygen Delivery Room Air 07/30/22 09:50 Temperature 36.9 C 07/30/22 11:33 Pulse Rate 60 07/30/22 11:33 Respiratory Rate 18 07/30/22 11:33 Blood Pressure 142/94 H 07/30/22 11:33 Pulse Oximetry 100 07/30/22 11:33 Oxygen Delivery Room Air 07/30/22 09:50 Lab Data Lab results reviewed: Yes I reviewed the patient's lab results. Labs: Lab Results 07/30/22 07/30/22 Range/Units 12:07 12:18 Influenza A (RT-PCR) Negative (Negative) Influenza B (RT-PCR) Negative (Negative) SARS-CoV-2 RNA (RT-PCR) Negative Group A Strep (PCR) Not detected (Negative) Discharge Plan Discharge Clinical Impression: Otalgia of left ear, Pharyngitis Patient Disposition: Home, Self-Care Condition: Stable Instructions: Antibiotic Form, Pharyngitis (ED) Prescriptions: New amoxicillin 875 mg tablet 875 mg PO Q12H Qty: 20 0RF No Action ibuprofen 800 mg tablet 800 mg PO TID PRN (Reason: pain) Qty: 14 0RF Follow-up/Referrals: UNKNOWN,DOCTOR [Primary Care Provider] - Stand Alone Forms: Work/School Release IP Time of Disposition: 13:07
[2022-07-30] MEDS: KETOROLAC (*BKC) 60 MG/2 ML VIAL IM (12:08)
[2022-07-30 12:49] LABS: Influenza A QL RT-PCR Negative (Negative); Influenza B QL RT-PCR Negative (Negative); SARS-CoV-2 RNA PCR Negative
[2022-07-30 12:56] LABS: Strep Group A RT-PCR NOT DETECTED (Negative)
== END 2022-07-30 13:19 | disposition home or self-care (01) ==
PROVIDERS: Emergency Provider Nurse Practitioner Family
DX: J02.9 Acute pharyngitis, unspecified (principal); H92.02 Otalgia, left ear; Z20.822 Contact with and (suspected) exposure to COVID-19; I10 Essential (primary) hypertension; Z87.891 Personal history of nicotine dependence
CPT/HCPCS: 87636; 87651; 96372; 99283; J1885